=== PATIENT | female | born 1990 | race Caucasian/White ===

== ENCOUNTER 2017-04-26 05:18 | Inpatient (IN) ==
--- OUTSIDE RECORDS SUMMARY | 2017-04-26 05:24 | External Medical Summary ---
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 Active classified elsewhere Problem Mild intermittent asthma with J45.21 Active (acute) exacerbation Assessment Acute pansinusitis, unspecified J01.40 Active Assessment Acute bronchitis due to other J20.8 Active specified organisms Assessment Major depressive disorder, F33.9 Active recurrent, unspecified Assessment Panic disorder [episodic paroxysmal F41.0 Active anxiety] without agoraphobia Medications Medication Code Code Instructions Start End Date Status Dosage System Date PredniSONE NDC 10350-29 20 MG Orally December 19, December 03, 2 tablets 18-20 Once a day 2015 2015 with food or milk Fluoxetine HCl NDC 02217-89 20 MG Orally 1 capsules 56-01 Once a day Amoxicillin NDC 68655-30 500 MG Orally December 19, December 29, 1 capsule 09-05 every 8 hrs 2015 2015 Procedures Procedure Coding System Code Date OFFICE VISIT, EST-MOD. COMPLEXITY (25 MIN) CPT-4 22785 December 20, 2015 Vital Signs Date/Time: December 20, 2015 Temperature 98.1 F Height 65 in Weight 142.8 lbs Blood Pressure Diastolic 79 mm Hg Blood Pressure Systolic 110 mm Hg Cardiac Monitoring Heart Rate 98 /min BMI 23.76 Index Oximetry 98 % Results No Known Results Summary Purpose eClinicalWorks Submission
--- OUTSIDE RECORDS SUMMARY | 2017-04-26 05:24 | External Medical Summary | Continuity of Care Document ---
:1989 Author Organization [facility] Address [address] [place], [place] [id number] Phone Care Team Providers Name Role Phone [facility] Unavailable Unavailable Allergies, Adverse Reactions, Alerts Substance Reaction Severity Status bacitracin Unknown Active BACITRACIN ZINC Unknown Active gramicidin D Unknown Active NEOMYCIN SULFATE Unknown Active polymyxin B Unknown Active POLYMYXIN B SULFATE Unknown Active calamine Unknown Active hydrocodone Itching, rash Unknown Active Medications Medication Instructions Dosage Effective Dates Status Comments (start - stop) ranitidine 75 mg take 1 tablet by oral 75 MG - Active tablet route 2 times every day with glass of water VITAMINS take 1 by Oral route - Active (unknown strength) every day Problems Condition Effective Dates (start - stop) Clinical Status Disorder of teeth and supporting - structures, unspecified Previous Low Transverse - Smoking (tobacco) complicating - , third trimester 30 weeks gestation of - Disorder of teeth and supporting - structures, unspecified Previous Low Transverse - Encounter for suprvsn of normal - , second trimester 14 weeks gestation of - Disorder of teeth and supporting - structures, unspecified Previous Low Transverse - Encounter for suprvsn of normal - , second trimester 18 weeks gestation of - Disorder of teeth and supporting - structures, unspecified Previous Low Transverse - Smoking (tobacco) complicating - , third trimester 32 weeks gestation of - Disorder of teeth and supporting - structures, unspecified Previous Low Transverse - Encounter for suprvsn of normal - , second trimester 25 weeks gestation of - Disorder of teeth and supporting - structures, unspecified Previous Low Transverse - 21 weeks gestation of - Encounter for suprvsn of normal - , second trimester Disorder of teeth and supporting - structures, unspecified Pap Smear Screening, Cervix - Encounter for suprvsn of normal - , first trimester 13 weeks gestation of - Previous Low Transverse - Previous Low Transverse - Encounter for screening of - mother 20 weeks gestation of - Previous Low Transverse - Encounter for suprvsn of normal - , third trimester Smoking (tobacco) complicating - , third trimester 28 weeks gestation of - 14 weeks gestation of - Encounter for suprvsn of normal - , second trimester Procedures Procedure Date OB Visit No Charge Results Test Name Date and Time Measure Units Reference Range Abnormal Flag Comments Unknown Advance Directives Directive Yes / No Effective Date File Name Unknown Encounters Encounter Practice Location Reason(s) Diagnoses Date Provider Care Team Description For Visit Members Gume Balderrama Disorder of teeth Chema Referring In Womens and supporting 9-201 Brie. Provider: Health PA, structures, 7 [address] unspecifiedPrevio Rosario Lyons, 1522, us Low Transverse Center 700 R[address] C-SectionSmoking Stacey, [facility], (tobacco) 120, [place] [id number], complicating Giancarlo Balderrama 120, [place] , third [place] ANDRADE, tel:[phone] [id number] weeks [id number] [place], [id number] gestation of , [place]. [id number]. tel: tel: [phone] [facility] Disorder of teeth Lakhwinder-0 Chema In Womens and supporting 5-201 Brie. Health PA, structures, 7 700 PO Box unspecifiedPrevio Medical 1522, us Low Transverse Center [place], C-SectionSmoking Giancarlo Ibarra, (tobacco) 120, , complicating [place], , third [place], tel: weeks [phone] [id number] gestation of , [place]. tel: [phone] [facility] Previous Low Reymundo-2 Chema In Womens Transverse 1-201 Brie. Health PA, C-SectionEncounte 7 700 PO Box [facility], normal , [facility], [facility] Giancarlo Ibarra, trimesterSmoking 120, , (tobacco) [facility] complicating [place], tel: , third [id number] weeks , [place]. gestation of tel: [phone] [facility] Disorder of teeth May-3 Chema In Womens and supporting 1-201 Brie. Health PA, structures, 7 700 [facility], us Low Transverse [facility], C-SectionEncounte [place]car[place] Ibarra, r for suprvsn of 120, [id number], normal , [place], second [place], tel: [id number] weeks [phone] [id number] gestation of , [place]. tel: [phone] [facility] Disorder of teeth May-0 Chema In Womens and supporting 3-201 Brie. Health PA, structures, 7 700 PO Box unspecifiedPrevio Medical 1522, us Low Transverse Center [place], [id number] weeks Giancarlo Ibarra, gestation of 120, , pregnancyEncounte [place], r for suprvsn of [place], tel: normal , second trimester , [place]. tel: [phone] [facility] Previous Low May-0 Chema In Womens Ultrasound Transverse 3-201 Brie. Health PA, C-SectionEncounte 7 700 PO Box r for Medical 1522, screening of [facility], weeks Giancarlo Ibarra, gestation of 120, [id number], [facility] [place], tel:+ [phone] , [place]. tel: [phone] [facility] Disorder of teeth Apr-1 Chema In Womens and supporting 9-201 Brie. Health PA, structures, 7 700 PO Box unspecifiedPrevio Medical 1522, us Low Transverse [facility], C-SectionEncradhae Giancarlo Ibarra, r for suprvsn of 120, [id number], normal , [facility] second [place], tel: [id number] weeks [phone] 196790 gestation of , [place]. tel: [phone] [facility] Disorder of teeth Mar-2 Chema In Womens and supporting 2-201 Brie. Health PA, structures, 7 700 PO Box unspecifiedPrevio Medical 1522, us Low Transverse [facility] C-SectionGiancarlo [address] Dr, r for suprvsn of 120, [id number], normal , [facility] second [place], tel:+ weeks [phone] 196790 gestation of , [place]. tel:[phone] [facility] 14 weeks Mar-2 Chema In Womens Ultrasound gestation of 2-201 Brie. Health PA, pregnancyEncounte 7 700 PO Box r for suprvsn of Medical 1522, normal , [facility], second trimester Giancarlo Ibarra, 120, [id number], [facility] [place], tel:[phone] , [place]. tel: [phone] [facility] Disorder of teeth Mar-2 Chema In Womens and supporting 0-201 Brie. Health PA, structures, 7 700 PO Box unspecifiedPap Medical 1522, Smear Screening, [facility], CervixEncounter Giancarlo Ibarra, for suprvsn of 120, [id number], normal , [facility] first [email or web address] [place], tel:+[phone] weeks gestation [phone] of , [place]. pregnancyPrevious tel: Low Transverse [phone] [facility] Chema In Womens 7-201 Brie. Health PA, 3 700 PO Box Medical 15[address], [place] [address] Rama, [place], 120, [id number], [facility] [place], tel:[phone] [phone] , [place]. tel: [phone] [facility] Chema In Womens 6-201 Brie. Health PA, 2 700 PO Box Medical 1522, [place] [address] Rama, [place], 120, [id number], [facility] [place], tel:[phone] 111358 , [place]. tel: [phone] Family History Family Member Diagnosis Age At Onset Mother Cardiovascular Disease No family history of Venous Thrombosis Mother Thyroid Disorder Maternal aunt Breast Cancer No family history of Pulmonary Embolism Maternal Grandmother Breast Cancer Immunizations Vaccine Date Status Comments Tdap completed Source: New Immunization Record Payers Payer name Insurance type Covered libertarian ID Authorization(s) [employer] [place] [employer] - Medicaid [place] [id number] [employer] [place]/Medicaid [place] [id number] [employer] [place] [employer] - Medicaid [place] [id number] Social History Type Description Quantity Date Captured Alcohol Use Details No Caffeine Use Details soda Tobacco Use Status Moderate cigarette smoker (06-13 cigs/day) Smoking Status Current every day smoker Vital Signs Date / Height Weight BMI Pulse Blood Temperature Respiratory Body Head BMI Time: Rate Pressure Rate Surface Circumference percentile Area 25.5 0 10:38 kg/m AM eter (2) 155.30 26.2 145/81 2017 lbs 4 mm[Hg] 10:40 kg/m AM eter (2) Chief Complaint And Reason For Visit Unknown Chief Complaint And Reason For Visit Reason For Referral Reason For Referral Unknown Plan Of Care Date Type Action Status Goal Tobacco cessation counseling completed Appointment Katrin Downing BOOKED Appointment Katrin Downing BOOKED Appointment Katrin Downing [facility] C/S BOOKED Future Order: Radiology Order Complete OB Ultrasound > 14 Ordered Weeks ([id number]) Future Order: Radiology Order Complete OB Ultrasound > 14 Ordered Weeks ([id number]) Date Type Problem Goal Intervention Status Start Date Unknown. History Of Present Illness Encounter Date Complaint History Of Present Illness This patient has no known history of present illness Functional Status Encounter Date Functional Assessment Cognitive Assessment Unknown Medications Administered Medication Instructions Dosage Effective Dates (start - stop) Status Comments Drug Treatment Unknown Instructions Date Instruction Additional Information indications for ultrasound influenza vaccine environmental / work hazards travel tobacco (ask, advise, assess, assist and arrange) use of any medications (including supplements, vitamins, herbs, OTC drugs) smoking counseling domestic violence seat belt use childbirth classes / hospital facilities hospital registration genetic testing HIV and other routine tests risk factors identified by history anticipated course of care nutrition and weight gain counseling, special diet toxoplasmosis precautions (cats / raw meat) sexual activity exercise new ob handbook risks
--- OUTSIDE RECORDS SUMMARY | 2017-04-26 05:24 | External Medical Summary | Continuity of Care Document ---
:1989 Author Organization [facility] Address [address] [place], [place] [id number] Phone Care Team Providers Name Role Phone [facility] Unavailable Unavailable Allergies, Adverse Reactions, Alerts [...] - structures, unspecified Previous Low Transverse - 14 weeks gestation of - Encounter for suprvsn of normal - , second trimester Disorder of teeth and supporting - structures, unspecified Previous Low Transverse - Encounter for suprvsn of normal - , second trimester 18 weeks gestation of - Disorder of teeth and supporting - structures, unspecified Previous Low Transverse - Smoking (tobacco) complicating - , third trimester 34 weeks gestation of - Disorder of teeth and supporting - structures, unspecified Previous Low Transverse - 25 weeks gestation of - Encounter for suprvsn of normal - , second trimester Disorder of teeth and supporting - structures, unspecified Previous Low Transverse - Encounter for suprvsn of normal - , second trimester 21 weeks gestation of - Disorder of teeth and supporting - structures, unspecified Previous Low Transverse - 30 weeks gestation of - Smoking (tobacco) complicating - , third trimester Disorder of teeth and supporting - structures, unspecified Previous Low Transverse - Pap Smear Screening, Cervix - Encounter for suprvsn of normal - , first trimester 13 weeks gestation of - Previous Low Transverse - 20 weeks gestation of - Encounter for screening of - mother Previous Low Transverse - Smoking (tobacco) complicating - , third trimester Encounter for suprvsn of normal - , third trimester 28 weeks gestation of - Encounter for suprvsn of normal - , second trimester 14 weeks gestation of - Procedures Procedure Date OB Visit No Charge Immuniz admnin, 1 vac, sngl/combo 19 Yrs + TDAP VACCINE >7 IM Results Test Name Date and Time Measure Units Reference Range Abnormal Flag Comments Unknown Advance Directives Directive Yes / No Effective Date File Name Unknown Encounters Encounter Practice Location Reason(s) Diagnoses Date Provider Care Team Description For Visit Members [facility] Disorder of teeth Chema In Womens and supporting 2-201 Brie. Health PA, structures, 7 700 PO Box unspecifiedPrevio Medical 1522, us Low Transverse Center [place], C-SectionSmoking Giancarlo Ibarra, (tobacco) 120, , complicating [place], , third [place], tel: [id number] weeks gestation of , [place]. tel: [phone] [facility] Disorder of teeth Lakhwinder-1 Chema Referring In Womens and supporting 9-201 Brie. Provider: Health roberto VIVAR, 7 700 [address]rie PO Box unspecifiedPrevio Medical Chema L, 152, us Low Transverse Center 700 [place], C-SectionSmoking Giancarlo Ibarra, (tobacco) 120, Center , complicating Giancarlo Balderrama [facility], [place] , third [place] ANDRADE, tel: [id number] weeks [place], gestation of , [place]. [id number]. tel: tel:[phone] [facility] Disorder of teeth Lakhwinder-0 Chema In Womens and supporting 5-201 Brie. Health PA, structures, 7 700 PO Box unspecifiedPrevio Medical 1522, us Low Transverse Center [place], C-[id number] weeks Giancarlo bIarra, gestation of 120, , pregnancySmoking [place], (tobacco) [place], tel: complicating , third , [place]. trimester tel: [phone] [facility] Previous Low Reymundo-2 Chema In Womens Transverse 1-201 Brie. Health PA, C-SectionSmoking 7 700 PO Box (tobacco) Medical 1522, complicating Center [place], , third Giancarlo Ibarra, trimesterEncounte 120, [id number], r for suprvsn of [place], normal , [place], tel: third [id number] [phone] 196790 weeks gestation , [place]. of tel: [phone] [facility] Disorder of teeth May-3 Chema In Womens and supporting 1-201 Brie. Health PA, structures, 7 700 PO Box unspecifiedPrevio Medical 1522, Low Transverse Center [place], [id number] weeks Giancarlo Ibarra, gestation of 120, , pregnancyEncounte [place], r for suprvsn of [place], tel:+ normal , [phone] 196790 second trimester , [place]. tel: [phone] [facility] Disorder of teeth May-0 Chema In Womens and supporting 3-201 Brie. Health PA, structures, 7 700 PO Box unspecifiedPrevio Medical 1522, Low Transverse Center [facility] [place] Ibarra, r for suprvsn of 120, [id number], normal , [place], second [place], tel:+ [id number] weeks [phone] 196790 gestation of , [place]. tel: [phone] [facility] Balderr[place] Previous Low May-0 Chema In Womens Ultrasound Transverse 3-201 Brie. Health PA, [id number] weeks 7 700 PO Box gestation of Medical 1522, [facility], r for Giancarlo Ibarra, screening of 120, , mother [place], [place], tel:+[phone] , [place]. tel: [phone] [facility] Disorder of teeth Apr-1 Chema In Womens and supporting 9-201 Brie. Health PA, structures, 7 700 PO Box unspecifiedPrevi Medical 1522, Low Transverse [facility], [facility] [place] Ibarra, r for suprvsn of 120, [id number], normal , [place], second [place], tel:+ [email or web address] weeks [phone] 196790 gestation of , [place]. tel: [phone] [facility] Disorder of teeth Mar-2 Chema In Womens and supporting 2-201 Brie. Health PA, structures, 7 700 PO Box unspecifiedPrevio Medical 1522, Low Transverse Center [place], C-[id number] weeks Giancarlo Ibarra, gestation of 120, [id number], pregnancyEncounte [place], r for suprvsn of [place], tel:+[phone] normal , [phone] second trimester , [place]. tel: [phone] [facility] Encounter for Mar-2 Chema In Womens Ultrasound suprvsn of normal 2-201 Brie. Health CB, , second 7 700 PO Box [id number] weeks Medical 1522, gestation of [facility], Giancarlo Ibarra, 120, [id number], [place], [place], tel:[phone] , [place]. tel: [phone] [facility] Disorder of teeth Mar-2 Chema In Womens and supporting 0-201 Brie. Health CB, structures, 7 700 PO Box unspecifiedPrevio Medical 1522, us Low Transverse [facility], C-SectionPap , Giancarlo ANDRADE, Smear Screening, 120, [id number], CervixEncounter [place], for suprvsn of [place], tel:[phone] normal , [phone] first [id number] , [place]. weeks gestation tel: of [phone] [facility] Aakash-0 Chema In Womens 7-201 Brie. Health CB, 3 700 PO [address] Medical [address], [address] [place], 120, [id number], [place], [place], tel:[phone] , [place]. tel: [phone] [facility] Aug-0 Chema In Womens 6-201 Brie. Health CB, 2 700 PO Box Medical [address], [address] [place], 120, [id number], [place], [place], tel:[phone] , [place]. tel: [phone] Family History Family Member Diagnosis Age At Onset Mother Cardiovascular Disease No family history of Venous Thrombosis Mother Thyroid Disorder Maternal aunt Breast Cancer No family history of Pulmonary Embolism Maternal Grandmother Breast Cancer Immunizations Vaccine Date Status Comments Tdap completed Source: New Immunization Record Payers Payer name Insurance type Covered constitution party ID Authorization(s) [employer] [place] [employer] - Medicaid [place] [id number] [facility]/Medicaid [place] [id number] [employer] [place] [employer] - Medicaid [place] [id number] Social History Type Description Quantity Date Captured Alcohol Use Details No Caffeine Use Details Unknown Tobacco Use Status Smoking Status Current every day smoker Vital Signs Date / Height Weight BMI Pulse Blood Temperature Respiratory Body Head BMI Time: Rate Pressure Rate Surface Circumference percentile Area Unknown Chief Complaint And Reason For Visit Unknown Chief Complaint And Reason For Visit Reason For Referral Reason For Referral Unknown Plan Of Care Date Type Action Status Goal Tobacco cessation counseling completed Appointment Katrin Downing BOOKED Appointment Katrin Downing [place] R C/S BOOKED Future Order: Radiology Order Complete OB Ultrasound > 14 Ordered Weeks ([id number]) Future Order: Radiology Order Complete OB Ultrasound > 14 Ordered Weeks ([id number]) Date Type Problem Goal Intervention Status Start [...] childbirth classes / hospital facilities hospital registration HIV and other routine tests risk factors identified by history anticipated course of care nutrition and weight gain counseling, special diet toxoplasmosis precautions (cats / raw meat) sexual activity exercise genetic testing new ob handbook risks
--- OUTSIDE RECORDS SUMMARY | 2017-04-26 05:24 | External Medical Summary | Continuity of Care Document ---
:1990 Author Organization [facility] [employer] [facility] Address [address] [place], [place] [id number] Phone Care Team Providers Name Role Phone [facility] Unavailable Unavailable Allergies, Adverse Reactions, Alerts Substance [...] suprvsn of normal - , third trimester 36 weeks gestation of - Disorder of teeth [...] of teeth and supporting - structures, unspecified Gestational htn w/o significant - proteinuria, third trimester Previous Low Transverse - Disorder of teeth and supporting - structures, unspecified Previous Low Transverse - Smoking (tobacco) complicating - , third trimester 30 weeks gestation of - Disorder of teeth and supporting - structures, unspecified Previous Low Transverse - Pap Smear Screening, Cervix - Encounter for suprvsn of normal - , first trimester 13 weeks gestation of - Disorder of teeth and supporting - structures, unspecified Previous Low Transverse - Encounter for suprvsn of normal - , third trimester 37 weeks gestation of - Previous Low Transverse - Encounter for screening of - mother 20 weeks gestation of - Previous Low Transverse - Smoking (tobacco) complicating [...] Visit Members [facility] [place] Disorder of teeth Aug-2 Chema In Womens and supporting 3-201 [facility] PA, structures, 7 700 PO Box unspecifiedPrevio Medical 1522, Low Transverse [facility] C-SectionEncbrittnee Ibarra, Giancarlo ANDRADE, r for suprvsn of 120, [id number], normal , [facility] third [email or web address] [place], tel:[phone] weeks gestation [phone] [address] of , [place]. tel: [phone] [facility] [place] Disorder of teeth Aug-1 Chema In Womens and supporting 7-201 [facility] PA, structures, 7 700 PO Box unspecifiedPrevio Medical 1522, [facility] C-SectionEncbrittnee Ibarra, Giancarlo ANDRADE, r for suprvsn of 120, [id number], normal , [facility] third [email or web address] [place], tel:[phone] weeks gestation [phone] [id number] of , [place]. tel: [phone] [facility] [place] Disorder of teeth Aug-1 Chema In Womens and supporting 6-201 [facility] PA, structures, 7 700 PO Box unspecifiedGestat Medical 1522, ional htn w/o [place], minerva Ibarra, Giancarlo ANDRADE, proteinuria, 120, [id number], third [place], trimesterPrevious [place], tel:[phone] Low Transverse [phone] , [place]. tel: [phone] [facility] [place] Disorder of teeth Aug-0 Chema In Womens and supporting 2-201 [facility] PA, structures, 7 700 PO Box unspecifiedPrevio Medical 1522, Low Transverse [facility] C-SectionSmoking Giancarlo Ibarra, (tobacco) 120, , complicating [place], , third [place], tel:[phone] [id number] weeks [id number] [id number] gestation of , [place]. tel: [phone] [facility] [place] Disorder of teeth Lakhwinder-1 Chema Referring In Womens and supporting 9-201 Brie. Provider: roberto Romo, 7 700 Brie PO Box unspecifiedPrevio Medical Chema L, 1522, us Low Transverse Center 700 [place], C-SectionSmoking Giacnarlo Ibarra, (tobacco) 120, [place] , complicating [place] 120, [place] , third [place] ANDRADE, tel: weeks [place], gestation of , [place]. [id number]. tel: tel: [phone] [facility] [place] Disorder of teeth Lakhwinder-0 Chema In Womens and supporting 5-201 [facility] PA structures, 7 700 PO Box unspecifiedPrevio Medical 152, Low Transverse [facility] [place], C-SectionSmoking Giancarlo Ibarra, (tobacco) 120, , complicating [place], , third [place], tel: [id number] weeks [phone] 1967[address] gestation of , [place]. tel: [phone] [facility] [place] Previous Low Reymundo-2 Chema In Womens Transverse 1-201 [facility], C-SectionSmoking 7 700 PO Box (tobacco) Medical 1522, complicating [facility] [place], , third Giancarlo Ibarra, trimesterEncounte 120, [id number], r for suprvsn of [place], normal , [place], tel: third [phone] [address] weeks gestation , [place]. of tel: [phone] [facility] [place] Disorder of teeth May-3 Chema In Womens and supporting 1-201 [facility] PA, structures, 7 700 PO Box unspecifiedPrevio Medical 1522, Low Transverse [facility] [place], C-SectionEncounte Giancarlo Ibarra, r for suprvsn of 120, [id number], normal , [place], second [place], tel: [id number] weeks [id number] 1967[address] gestation of , [place]. tel: [phone] [facility] [place] Disorder of teeth May-0 Chema In Womens and supporting 3-201 [facility] PA, structures, 7 700 PO Box unspecifiedPrevio Medical 1522, us Low Transverse [facility] CVincentSectionLydia Ibarra, Giancar[place], r for suprvsn of 120, [id number], normal , [place], second [place], tel:+ [id number] weeks [phone] [address] gestation of , [place]. tel: [phone] [facility] [place] Previous Low May-0 Chema In Womens Ultrasound Transverse 3-201 [facility]. [facility] CB, Fernanda-SectionBhavyaountlaurita 7 700 PO Box r for Medical 1522, screening of [facility], [id number] weeks Giancarlo Ibarra, gestation of 120, , [place], [place], tel:[phone] , [place]. tel: [phone] [facility] [place] Disorder of teeth Apr-1 Chema In Womens and supporting 9-201 [facility] PA, structures, 7 700 PO Box unspecifiedPrevio Medical 1522, us Low Transverse [facility] ortizSectionGiancarlo [address] [place], r for suprvsn of 120, [id number], normal , [place], second [place], tel:+ [id number] weeks [phone] 1967[address] gestation of , [place]. tel: [phone] [facility] [place] Disorder of teeth Mar-2 Chema In Womens and supporting 2-201 [facility] PA, structures, 7 700 PO Box unspecifiedPrevio Medical 1522, us Low Transverse [facility] [address] [place], r for suprvsn of 120, [id number], normal , [place], second [place], tel:+ [id number] weeks [phone] [address] gestation of , [place]. tel: [phone] [facility] [place] Encounter for Mar-2 Chema In Womens Ultrasound suprvsn of normal 2-201 [facility]. [facility] PA, , second 7 700 PO Box [id number] weeks Medical 1522, gestation of [facility], Giancarlo Ibarra, 120, [id number], [place], [place], tel:+ [phone] , [place]. tel: [phone] [facility] [place] Disorder of teeth Mar-2 Chema In Womens and supporting 0-201 [facility]. [facility] PA, structures, 7 700 PO Box unspecifiedPrevio Medical 1522, us Low Transverse [facility] [place], C-SectionPap , [facility], Smear Screening, 120, [id number], CervixEncounter [facility] for suprvsn of [place], tel:[phone] normal , [phone] first [id number] , [place]. weeks gestation tel: of [phone] [facility] [place] Aakash-0 Chema In Womens 7-201 [facility] PA, 3 700 PO Box Medical 1522, [address] [place], [facility], 120, [id number], [place], tel:+ [phone] , [place]. tel: [phone] [facility] [place] Aug-0 Chema In Womens 6-201 [facility] PA, 2 700 PO Box Medical 1522, [address] [place], [facility], 120, [id number], [place], [place], tel:[phone] , [place]. tel: [phone] Family History Family Member Diagnosis Age At Onset Mother Cardiovascular Disease No family history of Venous Thrombosis Mother Thyroid Disorder Maternal aunt Breast Cancer No family history of Pulmonary Embolism Maternal Grandmother Breast Cancer Immunizations Vaccine Date Status Comments Tdap completed Source: New Immunization Record Payers Payer name Insurance type Covered republican ID Authorization(s) [employer] - Medicaid MC [id number] [facility]/Medicaid [place] [id number] [employer] - Medicaid MC [id number] Social History Type Description Quantity Date Captured [...] Tobacco cessation counseling completed Appointment Katrin Downing [facility] R C/S BOOKED Appointment Katrin Downing BOOKED Future Order: Radiology Order Complete OB Ultrasound > 14 Ordered Weeks ([id number]) Future Order: Radiology Order Complete OB Ultrasound > 14 Ordered Weeks ([id number]) Date Type Problem Goal Intervention Status Start [...]
--- OUTSIDE RECORDS SUMMARY | 2017-04-26 05:24 | External Medical Summary | Continuity of Care Document ---
:1990 Author Organization [facility] Address [address] [place], [place] [id number] Phone Care Team Providers Name Role Phone [facility] Unavailable Unavailable Allergies, Adverse Reactions, [...] - structures, unspecified Previous Low Transverse - 13 weeks gestation of - Pap Smear Screening, Cervix - Encounter for suprvsn of normal - , first trimester Previous Low Transverse - 20 weeks gestation of - Encounter for screening of - mother Previous Low Transverse - Smoking (tobacco) complicating - , third trimester Encounter for suprvsn of normal - , third trimester 28 weeks gestation of - Encounter for suprvsn of normal - , second trimester 14 weeks gestation of - Procedures Procedure Date Unknown Results Test Name Date and Time Measure Units Reference Range Abnormal Flag Comments Unknown Advance Directives Directive Yes / No Effective Date File Name Unknown Encounters Encounter Practice Location Reason(s) Diagnoses Date Provider Care Team Description For Visit Members [facility] [place] Disorder of teeth Chema In Womens and supporting 2-201 [facility] PA, structures, 7 700 PO Box unspecifiedPrevio Medical 1522, us Low Transverse [facility] [place], C-SectionSmoking , Giancarlo ANDRADE, (tobacco) 120, [id number], complicating [place], , third [place], tel:[phone] [id number] weeks [id number] [address] gestation of , [place]. tel: [phone] [facility] [place] Lakhwinder-2 Chema In Womens 4-201 [facility] PA, 7 700 PO Box Medical 1522, [facility] [place], Giancarlo Ibarra, 120, [id number], [place], [place], tel:901 , [place]. tel: [phone] [facility] [place] Disorder of teeth Lakhwinder-1 Chema Referring In Womens and supporting 9-201 Brie. Provider: Health PA structures, 7 700 Brie PO Box unspecifiedPrevio Medical Chema L, 1522, Low Transverse [facility] [place], C-SectionSmoking [facility] [place], (tobacco) 120, [place] , complicating [place] [id number], , third [place], tel: [id number] weeks [place], gestation of , [place]. [id number]. tel: tel: [phone] [facility] [place] Disorder of teeth Lakhwinder-0 Chema In Womens and supporting 5-201 [facility]. [facility] PA, structures, 7 700 PO Box unspecifiedPrevio Medical 1522, us Low Transverse [facility] [place], C-SectionSmoking Dr [facility] [place], (tobacco) 120, , complicating [place], , third [place], tel: [id number] weeks [phone] [address] gestation of , [place]. tel: [phone] [facility] [place] Previous Low Reymundo-2 Chema In Womens Transverse 1-201 [facility]. [facility] PA, C-SectionSmoking 7 700 PO Box (tobacco) Medical 1522, complicating [place], , third Giancarlo Ibarra, trimesterEncounte 120, , r for suprvsn of [place], normal , [place], tel: third [id number] [phone] [address] weeks gestation , [place]. of tel: [phone] [facility] [place] Disorder of teeth May-3 Chema In Womens and supporting 1-201 [facility] PA, structures, 7 700 PO Box unspecifiedPrevio Medical 1522, us Low Transverse [facility] [place], C-[id number] weeks Giancarlo Ibarra, gestation of 120, [id number], pregnancyEncounte [place], r for suprvsn of [place], tel:+ normal , [phone] [address] second trimester , [place]. tel: [phone] [facility] [place] Disorder of teeth May-0 Chema In Womens and supporting 3-201 [facility]. [facility] PA, structures, 7 700 PO Box unspecifiedPrevio Medical 1522, us Low Transverse [facility] [place], C-SectionEncounte Giancarlo Ibarra, r for suprvsn of 120, [id number], normal , [place], second [place], tel:+ [id number] weeks [phone] 1967[address] gestation of , [place]. tel: [phone] [facility] [place] Previous Low May-0 Chema In Womens Ultrasound Transverse 3-201 [facility]. [facility] PA, [id number] weeks 7 700 PO Box gestation of Medical 1522, [facility] [place], r for Giancarlo Ibarra, screening of 120, [id number], mother [place], [place], tel:[phone] , [place]. tel: [phone] [facility] [place] Disorder of teeth Apr-1 Chema In Womens and supporting 9-201 [facility]. [facility] PA, structures, 7 700 PO Box unspecifiedPrevio Medical 1522, Low Transverse [facility] [place], C-SectionEncounte Giancarlo Ibarra, r for suprvsn of 120, [id number], normal , [facility] second [place], tel:+ [id number] weeks [id number] gestation of , [place]. tel: [phone] [facility] [place] Disorder of teeth Mar-2 Chema In Womens and supporting 2-201 B[facility]. [facility] PA, structures, 7 700 PO Box unspecifiedPrevio Medical 1522, us Low Transverse [facility] [place], C-[id number] weeks Giancarlo Ibarra, gestation of 120, [id number], pregnancyEncounte [place], r for suprvsn of [place], tel:+ normal , [phone] [address] second trimester , [place]. tel: [phone] [facility] [place] Encounter for Mar-2 Chema In Womens Ultrasound suprvsn of normal 2-201 B[facility]. [facility] PA, , second 7 700 PO Box [email or web address] weeks Medical 1522, gestation of [facility], Giancarlo Ibarra, 120, [id number], [place], [place], tel: [phone] , [place]. tel: [phone] [facility] [place] Disorder of teeth Mar-2 Chema In Womens and supporting 0-201 [facility]. [facility] PA, structures, 7 700 PO Box unspecifiedPrevio Medical 1522, us Low Transverse [facility], [id number] weeks Giancarlo Ibarra, gestation of 120, , pregnancyPap [place], Smear Screening, [place], tel: CervixEncounter [phone] for suprvsn of , [place]. normal , tel: first trimester [phone] [facility] [place] Aakash-0 Chema In Womens 7-201 [facility]. [facility] PA, 3 700 PO Box Medical 1522, [place] [address] [place], 120, [id number], [place], [place], tel: [phone] , [place]. tel: [phone] [facility] [place] Aug-0 Chema In Womens 6-201 [facility] PA, 2 700 PO Box Medical 1522, [place] [address] [place], 120, , [place], [place], tel: [phone] , [place]. tel: [phone] Family History Family Member Diagnosis Age At Onset Mother Cardiovascular Disease No family history of Venous Thrombosis Mother Thyroid Disorder Maternal aunt Breast Cancer No family history of Pulmonary Embolism Maternal Grandmother Breast Cancer Immunizations Vaccine Date Status Comments Tdap completed Source: New Immunization Record Payers Payer name Insurance type Covered constitution party ID Authorization(s) [employer] - Medicaid MC [id number] [facility]/Medicaid MC [id number] [employer] - Medicaid MC [id number] Social History Type Description Quantity Date Captured Unknown Vital Signs Date / Height Weight BMI Pulse Blood Temperature Respiratory Body Head BMI Time: Rate Pressure Rate Surface Circumference percentile Area Unknown Chief Complaint And Reason For Visit Unknown Chief Complaint And Reason For Visit Reason For Referral Reason For Referral Unknown Plan Of Care Date Type Action Status Goal Tobacco cessation counseling completed Appointment Katrin Downing BOOKED Appointment Katrin Downing [facility] R C/S BOOKED Future Order: Radiology Order Complete OB Ultrasound > 14 Ordered Weeks ([id number]) Future Order: Radiology Order Complete OB Ultrasound > 14 Ordered Weeks ([id number]) Date Type Problem Goal Intervention Status Start [...]
[2017-04-26] MEDS ORDERED: CEFAZOLIN PREMIX (MC ONLY) 2 GM/50 ML BAG IV ONE (05:32)
[2017-04-26] MEDS ORDERED: NOZIN NASAL SWAB NAS ONE (05:32)
[2017-04-26] MEDS ORDERED: CITRIC ACID/SODIUM CITRATE 30ml PO ONE (05:32)
[2017-04-26] MEDS ORDERED: FAMOTIDINE PB 20 MG/50 ML BAG IV ONE (05:32)
[2017-04-26] MEDS: LR 1,000 ML IV SCH ×2 (05:51→07:33)
[2017-04-26 06:17] VITALS: BMI 27.8
[2017-04-26] MEDS ORDERED: MORPHINE SULFATE PF 5mg/10ml INJ (Duramorph) ONE (07:05)
[2017-04-26] MEDS ORDERED: FentaNYL 100 MCG/2 ML INJECTION ONE (07:05)
[2017-04-26] MEDS ORDERED: EPHEDRINE 50mg/ml INJECTION ONE (07:07)
[2017-04-26] MEDS ORDERED: ONDANSETRON 4 MG/2 ML INJECTION ONE (07:07)
--- NOTE | 2017-04-26 07:10 | Anesthesia Preoperative Report ---
Anesthesia Epidural/Spinal Rec - Date and Time Date: 04/26/17 Procedure: Plan: Spinal - Vital Signs Vital Signs: Temperature 97.8 F 04/26/17 06:03 Pulse Rate 96 04/26/17 06:03 Respiratory Rate 16 04/26/17 06:03 Blood Pressure 138/84 04/26/17 06:03 Pulse Oximetry 99 04/26/17 06:03 /Para: P:1 Heart Rate: 120 - Medictaions & Allergies Inpatient Medications: Current Medications Lactated Ringer's (Lactated Ringers) 1,000 mls @ 0 mls/hr IV .Q0M JEFF PRN Reason: As Directed Last Admin: 04/26/17 05:51 Dose: 125 mls/hr Allergies/Adverse Reactions: Allergies Allergy/AdvReac Type Severity Reaction Status Date / Time latex Allergy Mild Verified 04/26/17 05:50 bacitracin Allergy Unknown HIVES Verified 04/26/17 05:50 calamine Allergy Unknown HIVES Verified 04/26/17 05:50 gramicidin D Allergy Unknown HIVES Verified 04/26/17 05:50 polymyxin B Allergy Unknown HIVES Verified 04/26/17 05:50 Bacitracin Zinc Allergy Unknown HIVES Uncoded 04/26/17 05:50 neomycin sulfate Allergy Unknown HIVES Uncoded 04/26/17 05:50 polymyxin B sulfate Allergy Unknown HIVES Uncoded 04/26/17 05:50 - Home Medications Home Medications: Home Medications Medication Instructions Recorded Confirmed Type Omeprazole Magnesium [Prilosec Otc] 20 mg PO DAILY 04/18/17 04/26/17 History Pnv No.95/Ferrous Fum/Folic AC 1 each PO DAILY 04/18/17 04/26/17 History [ Tablet] - Medical History Respiratory: Reports: Asthma Cardiovascular: Reports: Hypertension Gastrointestional: Reports: Gastroesophageal Reflux Disease Neuro/Musculoskeletal: Denies: HX.MS.OSAR, Back Problems, Cerebrovascular Accident, Depression, Headaches, Loss of Consciousness, Muscle Weakness, Neuromuscular Disorder, Paralysis, Paresthesia, Syncope, Seizures, Other Renal/Endocrine: DENIES: Diabetes Mellitus Type 1, Diabetes Mellitus Type 2, Renal Failure, Dialysis, Thyroid Disease, Weight Loss, Weight Gain, Other Other History: Reports: Now - Surgical History Anesthesia Reactions: None Hx Family Anesthesia Reaction: No History of Motion Sickness: No - Social History Smoking Status: Current every day smoker packs per day: 1 Pack-years: 11 Second Hand Exposure: Yes Substance Use Type: does not use - Pertinent Findings Lab Data: CBC and BMP 04/26/17 06:09 EKG Rhythm: Sinus Tachycardia - Physical Exam Respiratory Exam: lungs clear, bilateral breath sounds equal Cardiovascular Exam: regular rate and rhythm, no murmur - Airway Assessment Mallampati Score: II TMD: 3 Fingerbreadths Neck Extension: good Teeth: poor dentation Overall Assessment: may be difficult intubation - ASA ASA Score: 2 - Discussion Discussion: Discussed risks/options/alternatives of anesthesia and questions answered. Patient consents. Nursing pain assessment noted. Anesthesia Discussion: family member Attestation Statement: Prior to the delivery of any anesthetic medication, I examined the patient, developed the plan, obtained the patient's consent and discussed the risk and benefits of the procedure with the patient/guardian.
[2017-04-26] MEDS ORDERED: OXYTOCIN DRIP 30 UNIT/500 ML ML IV SCH ×2 (07:30→08:59)
[2017-04-26] MEDS ORDERED: ONDANSETRON 4 MG/2 ML INJECTION IVP PRN (07:48)
[2017-04-26] MEDS ORDERED: DiphenhydrAMINE 50 MG/ML INJECTION IVP PRN (07:48)
[2017-04-26] MEDS ORDERED: NALOXONE 2 MG/2 ML INJECTION PFS IVP PRN (07:48)
[2017-04-26] MEDS ORDERED: PHENYLEPHRINE INJ 10 MG/ML VIAL IV ONE (07:52)
[2017-04-26] MEDS ORDERED: SIMETHICONE 80 MG CHEWABLE TABLET PO PRN (08:59)
[2017-04-26] MEDS ORDERED: DiphenhydrAMINE 25 MG CAPSULE PO PRN (08:59)
[2017-04-26] MEDS ORDERED: SALINE FLUSH 10ml SYRINGE IVF PRN (08:59)
[2017-04-26] MEDS ORDERED: CALCIUM CARBONATE Chewable 500mg TABLET PO PRN (08:59)
[2017-04-26] MEDS ORDERED: ACETAMINOPHEN 500 MG TABLET PO PRN (08:59)
[2017-04-26] MEDS ORDERED: HYDROCORTISONE 2.5% CREAM 30gm RECTALLY PRN (08:59)
[2017-04-26] MEDS: D5LR 1,000 ML IV SCH ×2 (09:01→20:20)
[2017-04-26] MEDS: IBUPROFEN 800 MG TABLET PO SCH ×2 (10:34→20:15)
[2017-04-26] MEDS: HYDROCODONE/APAP 5mg/325mg TABLET PO PRN ×4 (10:38→22:23)
[2017-04-26] MEDS: SIMETHICONE 80 MG CHEWABLE TABLET PO SCH ×4 (10:46→22:22)
[2017-04-26] MEDS: DOCUSATE CALCIUM 240 MG CAPSULE PO SCH (10:46)
[2017-04-26] MEDS: NOZIN NASAL SWAB NAS SCH ×2 (11:48→16:06)
--- NOTE | 2017-04-26 14:02 | Anesthesia Postoperative Note ---
- Date and Time Date: 04/26/17 Time: 14:02 - Status Patient Participated in Evaluation: Patient Participated in Person Vital Signs: Temperature 97.8 F 04/26/17 06:03 Pulse Rate 96 04/26/17 06:03 Respiratory Rate 16 04/26/17 06:03 Blood Pressure 138/84 04/26/17 06:03 Pulse Oximetry 99 04/26/17 06:03 Respiratory Function: Airway Patent Cardiovascular Function: Regular Pulse EKG Rhythm: Normal Sinus Rhythm Mental Status: Alert and Oriented Pain Intensity: 2 Hydration: Taking PO Fluids Complications During Recover: None Apparent - Follow-Up Instructions Instructions: Per Surgeon
--- NOTE | 2017-04-26 14:56 | Anesthesia Postoperative Note ---
- Date and Time Date: 04/26/17 Time: 14:55 - Status Patient Participated in Evaluation: Patient Participated in Person Vital Signs: Temperature 97.8 F 04/26/17 14:13 Pulse Rate 72 04/26/17 14:13 Respiratory Rate 18 04/26/17 14:13 Blood Pressure 110/58 04/26/17 14:13 Pulse Oximetry 98 04/26/17 14:13 Respiratory Function: Airway Patent, Regular Respirations Cardiovascular Function: Regular Pulse Mental Status: Alert and Oriented Pain Intensity: 4 Hydration: Taking PO Fluids Complications During Recover: None Apparent Post Anesthesia Care Notes: ambulating without problems - Follow-Up Instructions Instructions: Per Surgeon
--- NOTE | 2017-04-26 15:56 | OB/GYN Progress Note ---
OB - PN: A/P - Time Spent With Patient Total time spent is greater than 50% in coordination of care (as documented) at patient's floor/unit and/or counseling patient: less than 15 minutes OB - PN: Subj Interval history: Baby in SCN, stable. Mom reports pain improves with pain meds. Patient comments: incisional pain baby status: doing well Camby feeding status: pumping and storing Narrative: Continue routine care. OB - PN: Obj Exam Vital signs: Temperature 97.8 F 04/26/17 14:13 Pulse Rate 72 04/26/17 14:13 Respiratory Rate 18 04/26/17 14:13 Blood Pressure 110/58 04/26/17 14:13 Pulse Oximetry 98 04/26/17 14:13 - Wound Management Method: suture Drains: none Examination: Present: dressed, serosanguinous drainage, intact - Urinary Catheter Management Urethral Cath placed during this visit: yes Urethral indwelling: Yes Reason for continuing: Physician Order to NOT Remove Catheter at This Time Insertion date: 04/26/17 Insertion time: 07:28 OB - PN: Obj Data - Labs CBC & Chem 7: 04/26/17 14:09 Labs: Laboratory Results - last 24 hr 04/26/17 04/26/17 04/26/17 06:09 06:09 14:09 WBC 11.7 H 16.8 H D RBC 3.31 L 3.11 L Hgb 9.9 L 9.6 L Hct 30.2 L 28.4 L MCV 91.2 91.3 MCH 29.9 30.9 MCHC 32.8 33.8 RDW Std Deviation 42.6 41.7 Plt Count 278 247 MPV 11.1 10.5 Immature Gran % (Auto) 0.7 H Not performed Neut % (Auto) 65.0 Not performed Lymph % (Auto) 25.0 Not performed [place] % (Auto) 6.5 Not performed Eos % (Auto) 2.6 Not performed Baso % (Auto) 0.2 Not performed Neut # 7.6 Not performed Lymph # 2.9 Not performed [place] # 0.8 Not performed Eos # 0.3 Not performed Baso # 0.0 Not performed Abs Immat Gran (auto) 0.08 H Not performed Neutrophils % (Manual) 77.0 H Lymphocytes % (Manual) 18.0 L Monocytes % (Manual) 4.0 Eosinophils % (Manual) 1.0 Neutrophils # (Manual) 12.9 H Lymphocytes # (Manual) 3.0 Monocytes # (Manual) 0.7 Eosinophils # (Manual) 0.2 RBC Morph Comment Normal Blood Type O Positive Antibody Screen Negative
[2017-04-27] MEDS: NOZIN NASAL SWAB NAS SCH ×3 (01:08→15:51)
[2017-04-27] MEDS: IBUPROFEN 800 MG TABLET PO SCH ×4 (05:42→21:45)
[2017-04-27] MEDS: HYDROCODONE/APAP 5mg/325mg TABLET PO PRN ×5 (05:43→21:46)
--- NOTE | 2017-04-27 09:31 | OB/GYN Progress Note ---
OB-PP Progress Note - General PPD1 Maternal Group B Strep: Negative Maternal blood type: O+ Maternal Rubella Status: Immune - Subjective Date: 04/27/17 Lochia: Minimal Pain: contolled Voiding: voiding Subjective Comments: Baby is in SCN. - Objective Vital Signs: Last Vital Signs Temp 97.5 F 04/27/17 05:50 Pulse 97 04/27/17 05:50 Resp 20 04/27/17 05:50 BP 129/78 04/27/17 05:50 Pulse Ox 100 04/27/17 05:50 Urine Output: good General: alert and oriented Abdomen: fundus firm, non-tender, soft, non-distended Incision: normal, dry, intact Extremities: non-tender Laboratory: Laboratory Results - last 24 hr 04/26/17 14:09 WBC 16.8 H D RBC 3.11 L Hgb 9.6 L Hct 28.4 L MCV 91.3 MCH 30.9 MCHC 33.8 RDW Std Deviation 41.7 Plt Count 247 MPV 10.5 Immature Gran % (Auto) Not performed Neut % (Auto) Not performed Lymph % (Auto) Not performed [place] % (Auto) Not performed Eos % (Auto) Not performed Baso % (Auto) Not performed Neut # Not performed Lymph # Not performed [place] # Not performed Eos # Not performed Baso # Not performed Abs Immat Gran (auto) Not performed Neutrophils % (Manual) 77.0 H Lymphocytes % (Manual) 18.0 L Monocytes % (Manual) 4.0 Eosinophils % (Manual) 1.0 Neutrophils # (Manual) 12.9 H Lymphocytes # (Manual) 3.0 Monocytes # (Manual) 0.7 Eosinophils # (Manual) 0.2 RBC Morph Comment Normal - Assessment Assessment: Repeat C/S, Anemia - Plan Plan: routine care, iron
[2017-04-27] MEDS: DOCUSATE CALCIUM 240 MG CAPSULE PO SCH (09:48)
[2017-04-27] MEDS: SIMETHICONE 80 MG CHEWABLE TABLET PO SCH ×4 (09:50→21:46)
[2017-04-27] MEDS: IRON POLYSACCHARIDE COMPLEX 150 MG CAPSULE PO SCH (09:50)
--- NOTE | 2017-04-27 11:32 | Operative Note ---
DATE OF OPERATION 04/26/2017 PREOPERATIVE DIAGNOSIS Term , previous , declines . POSTOPERATIVE DIAGNOSIS Term , previous , declines . PROCEDURES Repeat low transverse section. SURGEON Brie Bear MD SMALL ORDER CUTTER Samm López, DO ANESTHESIA Spinal, epidural. ANESTHESIOLOGIST Hussein Walters CRNA ESTIMATED BLOOD LOSS 800 mL DESCRIPTION OF PROCEDURE Ms. Downing was brought to the OR and given regional analgesia to good effect. She was then placed on the OR table in supine position with left lateral displacement. A Trotter catheter was placed to dependent drain. The abdomen was prepped and draped in the usual sterile fashion. A Pfannenstiel skin incision was made with a sharp knife. This was carried down to fascia. Fascia was incised transversely. Fascia was then tented up. It was bluntly and sharply dissected free of rectus muscles. Rectus muscles were bluntly divided and the peritoneum tented up. This was sharply entered and extended vertically. The bladder blade was then inserted. The bladder was noted to be well below our area of area of operation. I then made a low transverse uterine incision with a sharp knife. There was clear amniotic fluid. This was then extended bluntly vertically. The baby was delivered vertex in the OA presentation after reduction of a loose nuchal cord x 1. It was a bit difficult to get his shoulders out. He was delivered, then further bulb suctioned on the abdomen. Cord was doubly clamped and cut and baby was given to the pediatric team for care. This was a liveborn male weighing 7 pounds, 15.4 ounces. He subsequently went to special care nursery with some respiratory difficulty and Apgars are not available to me at this time. The placenta was then expressed intact. It had a normal configuration, a three-vessel cord with minimal coiling. The uterus was exteriorized and the uterine cavity swept clear of membranes. We then reapproximated the myometrium with a running, locking 0- Monocryl. There was a small area in the left of midline that continued to bleed. This was secured with a [id number] suture of 0-Monocryl. We observed carefully for hemostasis and used some Bovie electrocautery to control some small areas of bleeding. Once this was hemostatic we returned the uterus, tubes and ovaries to the abdominal cavity. We reinspected for hemostasis - it remained under good control. We then continued our closure. Peritoneum was reapproximated with a running, nonlocking 2-0 Vicryl. Fascia was reapproximated with a running, nonlocking 0-Vicryl. Skin edges were reapproximated with subcuticular style 3-0 undyed Vicryl. The wound was dressed with Steri-Strips and sterile dressings. Counts were correct postoperatively x 2. The urine remained clear and free-flowing throughout the procedure. Ms. Downing was then transferred to recovery in stable condition. DHEERAJ
[2017-04-28] MEDS: HYDROCODONE/APAP 5mg/325mg TABLET PO PRN ×3 (01:36→11:43)
[2017-04-28] MEDS: NOZIN NASAL SWAB NAS SCH ×2 (01:36→07:34)
[2017-04-28] MEDS: IBUPROFEN 800 MG TABLET PO SCH ×4 (07:33→21:53)
[2017-04-28] MEDS: SIMETHICONE 80 MG CHEWABLE TABLET PO SCH ×3 (12:23→21:54)
--- NOTE | 2017-04-28 12:34 | OB/GYN Progress Note ---
OB-PP Progress Note - General PPD1, PPD2 - Subjective Date: 04/28/17 Lochia: Minimal Pain: moderate Voiding: voiding Nausea or Vomiting Present: No Subjective Comments: Pain stays controlled for a couple of hours after [place]. - Objective Vital Signs: Last Vital Signs Temp 97.9 F 04/28/17 06:00 Pulse 84 04/28/17 06:00 Resp 17 04/28/17 06:00 BP 137/80 04/28/17 06:00 Pulse Ox 99 04/28/17 06:00 Urine Output: good General: alert and oriented Abdomen: fundus firm, non-tender Incision: normal, intact Extremities: non-tender Side: bilateral Site: ankle Edema Degree: 1+ - Assessment Assessment: SP, Repeat C/S - Plan Plan: routine care Expected date of discharge: 04/29/17
--- NOTE | 2017-04-28 12:36 | Discharge Instructions ---
Discharge Plan - Med Rec/Dispo Prescriptions: New Ibuprofen [Motrin] 800 mg PO Q8H #40 tab Oxycodone/APAP 5/325 [Percocet 5/325] 1 - 2 tab PO Q4H PRN #30 tab PRN Reason: Pain Docusate Calcium [Surfak] 240 mg PO DAILY #30 cap No Action Omeprazole Magnesium [Prilosec Otc] 20 mg PO DAILY Pnv No.95/Ferrous Fum/Folic AC [ Tablet] 1 each PO DAILY
[2017-04-28] MEDS: DOCUSATE CALCIUM 240 MG CAPSULE PO SCH (14:20)
[2017-04-28] MEDS: IRON POLYSACCHARIDE COMPLEX 150 MG CAPSULE PO SCH (14:22)
[2017-04-28] MEDS: Oxycodone/Acetaminophen 5/325 1 TAB PO PRN ×2 (16:17→21:53)
[2017-04-29 00:33] VITALS: RESP 14
[2017-04-29] MEDS: Oxycodone/Acetaminophen 5/325 1 TAB PO PRN ×2 (03:08→09:54)
[2017-04-29] MEDS: SIMETHICONE 80 MG CHEWABLE TABLET PO SCH ×2 (03:10→09:53)
[2017-04-29 03:42] VITALS: BP 142/89; PULSE 77; TEMP 98.3; O2SAT 100
[2017-04-29] MEDS ORDERED: OMEPRAZOLE 20 MG CAPSULE PO SCH (06:30)
[2017-04-29] MEDS ORDERED: PRENATAL VITAMIN TABLET PO SCH (09:00)
[2017-04-29] MEDS: IBUPROFEN 800 MG TABLET PO SCH ×2 (09:53→11:16)
[2017-04-29] MEDS: DOCUSATE CALCIUM 240 MG CAPSULE PO SCH (09:53)
[2017-04-29] MEDS: IRON POLYSACCHARIDE COMPLEX 150 MG CAPSULE PO SCH (11:26)
== END 2017-04-29 13:15 | disposition home or self-care (01) | DRG 766 ==
LOC: MC 05:18
PROVIDERS: ADMIT Obstetrics & Gynecology; ATTEND Obstetrics & Gynecology